=== PATIENT | female | born 1965 | race Caucasian/White ===

== ENCOUNTER → 2017-01-30 | Outpatient (CLI) | payer BC ==
[~2017-01-30] MED LIST: ALLEGRA ALLERG180 MG PO; AMBIEN5 MG PO; AMITRIPTYLINE H10 MG PO; ATIVAN0.5 MG PO; CALCIUM WITH V1 EAC1 PO; CALTRATE 600 WI1 TAB PO; CO Q-1010 MG PO; CO Q-10100 MG PO; CYMBALTA60 MG PO; ELAVIL10 MG PO; ELAVIL25 MG PO; FLEXERIL10 MG PO; FLONASE16 GM NASBOTH; HAIR, SKIN & N1 EAC2 PO; HALFPRIN81 MG PO; LASIX20 MG PO; LIDODERM 5%1 PATCH TOP; MAXALT10 MG PO; MOBIC15 MG PO; MULTIPLE VITAM1 EACH PO; NEURONTIN100 MG PO; NORCO 325-5 MG1 TAB PO; OMEGA FISH O PO; PRILOSEC40 MG PO; PRINIVIL10 MG PO; SENNA-S TABLET1 EACH PO; SENOKOT8.6 MG PO; SINGULAIR10 MG PO; TOPAMAX200 MG PO; VITAMIN D31000 UNIT PO; ZANAFLEX4 M1 PO; ZOCOR10 MG PO; ZOFRAN4 MG PO; ZYRTEC10 MG PO
== END | disposition short-term general hospital (02) ==
LOC: CLPAIN 10:46
DX: M79.1 Myalgia (principal)

== ENCOUNTER 2017-02-15 23:44 | Observation (INO) | payer BC, SELFPAY ==
[~2017-02-15] VITALS: Ht 165.1 cm; Wt 113.3 kg
[~2017-02-15 23:44] MED LIST changes: -AMITRIPTYLINE H10 MG PO; -CALTRATE 600 WI1 TAB PO; -CO Q-10100 MG PO; -ELAVIL25 MG PO; -FLONASE16 GM NASBOTH; -LASIX20 MG PO; -SENOKOT8.6 MG PO; -SINGULAIR10 MG PO; -ZYRTEC10 MG PO
[2017-02-16] MEDS ORDERED: CALTRATE 600 WI1 TAB PO (00:19)
[2017-02-16] MEDS ORDERED: CO Q-10100 MG PO (00:22)
[2017-02-16] MEDS ORDERED: FLONASE16 GM NASBOTH (00:24)
[2017-02-16] MEDS ORDERED: LASIX20 MG PO (00:25)
[2017-02-16] MEDS ORDERED: SINGULAIR10 MG PO (00:30)
[2017-02-16] MEDS ORDERED: ZYRTEC10 MG PO (00:36)
[2017-02-16] MEDS ORDERED: SENOKOT8.6 MG PO (10:55)
[2017-02-16] MEDS ORDERED: AMITRIPTYLINE H10 MG PO (10:56)
== END 2017-02-16 15:19 | disposition short-term general hospital (02) ==
LOC: ER 23:44 → IP 02-16 01:02 → OBS 02-16 01:02 → IP 02-16 15:19
PROVIDERS: ADMIT Family Medicine
DX: R07.9 Chest pain, unspecified (principal); I10 Essential (primary) hypertension; G43.909 Migraine, unspecified, not intractable, without status migrainosus; K21.9 Gastro-esophageal reflux disease without esophagitis; F32.9 Major depressive disorder, single episode, unspecified; Z88.8 Allergy status to other drugs, medicaments and biological substances; Z91.013 Allergy to seafood; Z79.1 Long term (current) use of non-steroidal anti-inflammatories (NSAID); Z79.82 Long term (current) use of aspirin; Z79.891 Long term (current) use of opiate analgesic; Z79.899 Other long term (current) drug therapy
CPT/HCPCS: A9150; A9270; G0378; J2270; J2405

== ENCOUNTER → 2017-02-26 | Outpatient (CLI) | payer BC, SELFPAY ==
[~2017-02-26] MED LIST changes: +AMITRIPTYLINE H10 MG PO; +CALTRATE 600 WI1 TAB PO; +CO Q-10100 MG PO; +ELAVIL25 MG PO; +FLONASE16 GM NASBOTH; +LASIX20 MG PO; +SENOKOT8.6 MG PO; +SINGULAIR10 MG PO; +ZYRTEC10 MG PO
== END | disposition short-term general hospital (02) ==
LOC: CLCARD 02-19 11:47
DX: R07.89 Other chest pain (principal); I10 Essential (primary) hypertension; E78.5 Hyperlipidemia, unspecified; E66.9 Obesity, unspecified; M19.90 Unspecified osteoarthritis, unspecified site; F43.9 Reaction to severe stress, unspecified; F41.9 Anxiety disorder, unspecified; Z90.710 Acquired absence of both cervix and uterus; Z90.49 Acquired absence of other specified parts of digestive tract; Z98.1 Arthrodesis status; Z98.890 Other specified postprocedural states; Z88.5 Allergy status to narcotic agent; Z88.8 Allergy status to other drugs, medicaments and biological substances; Z80.9 Family history of malignant neoplasm, unspecified; Z82.49 Family history of ischemic heart disease and other diseases of the circulatory system

== ENCOUNTER 2017-03-03 23:08 | Emergency (ER) | payer BC, SELFPAY ==
[~2017-03-03] VITALS: Ht 165.1 cm; Wt 113.3 kg
[~2017-03-03 23:08] MED LIST changes: -ELAVIL25 MG PO
== END 2017-03-04 00:45 | disposition short-term general hospital (02) ==
LOC: ER 23:08
DX: R07.89 Other chest pain (principal); I10 Essential (primary) hypertension; M54.9 Dorsalgia, unspecified; G89.29 Other chronic pain; F32.9 Major depressive disorder, single episode, unspecified; K21.9 Gastro-esophageal reflux disease without esophagitis; E78.5 Hyperlipidemia, unspecified; G43.909 Migraine, unspecified, not intractable, without status migrainosus; E55.9 Vitamin D deficiency, unspecified; F41.9 Anxiety disorder, unspecified; G47.00 Insomnia, unspecified; Z90.49 Acquired absence of other specified parts of digestive tract; Z98.890 Other specified postprocedural states; Z90.710 Acquired absence of both cervix and uterus
CPT/HCPCS: A9150; J2060

== ENCOUNTER 2017-05-04 22:31 | Emergency (ER) | payer BC ==
[~2017-05-04] VITALS: Ht 167.6 cm; Wt 113.3 kg
[2017-05-04] MEDS ORDERED: MOBIC15 MG PO (23:36)
[2017-05-04] MEDS ORDERED: ELAVIL25 MG PO (23:38)
[2017-05-04] MEDS ORDERED: CO Q-1010 MG PO (23:42)
== END 2017-05-05 00:43 | disposition short-term general hospital (02) ==
LOC: ER 22:31
DX: G43.909 Migraine, unspecified, not intractable, without status migrainosus (principal); R11.2 Nausea with vomiting, unspecified; F32.9 Major depressive disorder, single episode, unspecified; I10 Essential (primary) hypertension; E78.5 Hyperlipidemia, unspecified; G47.00 Insomnia, unspecified; Z88.5 Allergy status to narcotic agent; Z88.8 Allergy status to other drugs, medicaments and biological substances
CPT/HCPCS: J1885; J2405